=== PATIENT | male | born 1960 | race Caucasian/White ===

== ENCOUNTER 2023-02-19 09:55 | Outpatient (REF) | payer OTHER, SELFPAY ==
[2023-02-19 10:13] LABS: MANUAL DIFF FLAG NO
[2023-02-19 10:49] LABS: Basophils Percent Auto 0.6 % (0-2); Eosinophils Absolute Auto 0.1 X10*3/uL (0.0-0.4); Eosinophils Percent Auto 1.2 % (0-4); Hematocrit 44.3 % (42.0-52.0); Hemoglobin 15.2 g/dl (14.0-18.0); Imm Gran Abs Auto 0.03 X10*3/uL (0.00-0.03); Imm Gran Pct Auto 0.5 % (0.0-0.4); Lymphocytes Absolute Auto 1.4 X10*3/uL (1.2-4.9); Lymphocytes Percent Auto 21.6 % (20-40); Mean Corpuscular HGB Conc 34.3 g/dl (31.0-36.0); Mean Corpuscular Hemoglobin 31.7 pg (27.0-33.0); Mean Corpuscular Volume 92.5 fL (80.0-98.0); Mean Platelet Volume 9.5 fL (9.4-12.4); Monocytes Absolute Auto 0.6 X10*3/uL (0.1-1.2); Monocytes Percent Auto 9.6 % (2-11); Neutrophils Absolute Auto 4.4 x10*3/uL (2.0-8.3); Neutrophils Percent Auto 66.5 % (45-73); Platelet Count 178 X10*3/uL (160-400); Red Blood Count 4.79 X10*6/uL (4.60-5.80); Red Cell Distribution Width 12.3 % (11.0-16.0); White Blood Count 6.6 X10*3/uL (4.8-10.8)
[2023-02-19 11:19] LABS: Alanine Aminotransferase 34 U/L (0-40); Albumin Level 4.1 g/dL (3.5-5.0); Alkaline Phosphatase 106 U/L (39-117); Anion Gap 13 (12-20); Aspartate Amino Transferase 30 U/L (5-37); Bilirubin Total 0.7 mg/dL (0.0-1.0); Blood Urea Nitrogen 15 mg/dL (9-16); Carbon Dioxide 26 mmol/L (22-29); Chloride 106 mmol/L (96-108); Cholesterol 170 mg/dL; Estimated Glomerular Filt Rate > 60; Glucose Random 97 mg/dL (60-115); HDL Cholesterol 44 mg/dL; LDL Cholesterol Calculated 97 mg/dl; Potassium 4.4 mmol/L (3.3-5.1); Sodium 141 mmol/L (135-145); Total Protein 6.9 g/dL (6.5-8.0); Triglycerides 145 mg/dL; Uric Acid 5.9 mg/dL (3.4-7.0)
[2023-02-19 11:34] LABS: Prostate Specific Antigen 1.44 ng/mL (<0.05-4.0)
== END 2023-02-19 09:56 | disposition home or self-care (01) ==
LOC: HO.LAB 09:55
PROVIDERS: PCP Internal Medicine; Visit Provider Internal Medicine
DX: Z12.5 Encounter for screening for malignant neoplasm of prostate (principal); M19.90 Unspecified osteoarthritis, unspecified site; M10.9 Gout, unspecified; R35.1 Nocturia; Z83.42 Family history of familial hypercholesterolemia
CPT/HCPCS: 36415; 80053; 80061; 84153; 84550; 85025

== ENCOUNTER 2024-03-27 09:31 | Outpatient (REF) | payer OTHER, SELFPAY ==
[2024-03-27 10:15] LABS: MANUAL DIFF FLAG NO
[2024-03-27 10:43] LABS: Basophils Percent Auto 0.3 % (0-2); Eosinophils Absolute Auto 0.1 X10*3/uL (0.0-0.4); Eosinophils Percent Auto 1.7 % (0-4); Hematocrit 43.4 % (42.0-52.0); Hemoglobin 15.1 g/dl (14.0-18.0); Imm Gran Abs Auto 0.07 X10*3/uL (0.00-0.03); Imm Gran Pct Auto 1.1 % (0.0-0.4); Lymphocytes Absolute Auto 1.3 X10*3/uL (1.2-4.9); Lymphocytes Percent Auto 21.1 % (20-40); Mean Corpuscular HGB Conc 34.8 g/dl (31.0-36.0); Mean Corpuscular Hemoglobin 31.9 pg (27.0-33.0); Mean Corpuscular Volume 91.6 fL (80.0-98.0); Mean Platelet Volume 9.4 fL (9.4-12.4); Monocytes Absolute Auto 0.6 X10*3/uL (0.1-1.2); Monocytes Percent Auto 8.7 % (2-11); Neutrophils Absolute Auto 4.2 x10*3/uL (2.0-8.3); Neutrophils Percent Auto 67.1 % (45-73); Platelet Count 176 X10*3/uL (160-400); Red Blood Count 4.74 X10*6/uL (4.60-5.80); White Blood Count 6.3 X10*3/uL (4.8-10.8)
[2024-03-27 12:13] LABS: Alanine Aminotransferase 26 U/L (0-40); Albumin Level 4.1 g/dL (3.5-5.0); Alkaline Phosphatase 113 U/L (39-117); Anion Gap 12 (12-20); Aspartate Amino Transferase 22 U/L (5-37); Bilirubin Total 0.3 mg/dL (0.0-1.0); Blood Urea Nitrogen 14 mg/dL (9-16); Calcium 8.6 mg/dL (8.4-10.2); Carbon Dioxide 26 mmol/L (22-29); Chloride 105 mmol/L (96-108); Estimated Glomerular Filt Rate > 60; Glucose Fasting 92 mg/dL (60-99); Sodium 139 mmol/L (135-145); Total Protein 7.1 g/dL (6.5-8.0)
== END 2024-03-27 09:32 | disposition home or self-care (01) ==
LOC: HO.HMGCLDS 09:31
PROVIDERS: PCP Internal Medicine; Visit Provider Internal Medicine
DX: I10 Essential (primary) hypertension (principal); G47.33 Obstructive sleep apnea (adult) (pediatric); I45.10 Unspecified right bundle-branch block; Z12.5 Encounter for screening for malignant neoplasm of prostate
CPT/HCPCS: 36415; 80053; 84153; 85025

== ENCOUNTER 2025-03-03 09:56 | Outpatient (AMB) | payer OTHER, SELFPAY ==
[2025-03-03 09:38] VITALS: BP 130/70; PULSE 88; TEMP 36.6; O2SAT 98; BMI 41.0
--- NOTE | 2025-03-03 09:38 | A.OFFPC_ITS ---
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 Required: No Accompanied by: Self / Same As Patient Allergies No Known Allergies Allergy (Verified 03/03/25 09:39) Tobacco use date assessed: 03/03/25 Fall risk assessment: No Falls in past year Last assessed Fall Risk: 03/03/25 Dental Screening Dental Screen Date: 03/03/25 Did you have a dental visit in the last 12 months?: Yes Did you have a dental problem in the last 6 months where you did not have access to dental care?: No [facility] Medical History (Updated 03/03/25 @ 10:18 by Michel Medina MD) Obstructive sleep apnea Obesity (BMI 30.0-34.9) Chronic gout Encounter for colorectal cancer screening using Cologuard test (10/29/24) Family History Mother No problems noted. Mother No problems noted. Social History Housing: House Patient Tobacco Use Status: Never used Tobacco e-Cigarette/Vaping Use: Never Used service: No Current occupational status: employed Cognitive needs: No Hearing needs: No Vision needs: Yes (rx glasses) Questionnaire PHQ-9 Over the last 2 weeks, how often have you been bothered by any of the following problems? 1. Little interest or pleasure in doing things: not at all 2. Feeling down, depressed, or hopeless: not at all 3. Trouble falling or staying asleep, or sleeping too much: not at all 4. Feeling tired or having little energy: not at all 5. Poor appetite or overeating: not at all 6. Feeling bad about yourself - or that you are a failure or have let yourself or your family down: not at all 7. Trouble concentrating on things, such as reading the newspaper or watching television: not at all 8. Moving or speaking so slowly that other people could have noticed. Or the opposite - being so fidgety or restless that you have been moving around a lot more than usual: not at all 9. Thoughts that you would be better off or of hurting yourself in some way: not at all Total score: 0 Depression Screening Interpretation: Negative Depression Screening Done: Yes Source: Developed by Drs. Perry Peters, Joy Conde, Miguel Chiu and colleagues, with an educational cj from [employer]. Thrive Questionnaire Date Thrive assessed: 03/03/25 I am a: Patient Within the past 12 months, did the food you bought not last and you didn't have the money to get more?: Never true Within the past 12 months, did you worry whether your food would run out before you got money to buy more?: Never true Do you have trouble paying for medicines?: No Do you have trouble getting transportation to medical appointments?: No Do you have trouble paying your heating and electricity bill?: No Do you have trouble taking care of your child, family member or friend?: No Do you have trouble with day-to-day activities such as bathing, preparing meals, shopping, managing finances, etc.?: No Are you currently unemployed and looking for a job?: No Are you interested in more education?: No Currently or been in a relationship where the following occur: No concerns reported THRIVE Score: 0 AUDIT C Alcohol Use Questionnaire (AUDIT-C) 1. How often do you have a drink containing alcohol?: Monthly or less 2. How many drinks containing alcohol do you have on a typical day when you are drinking?: 1 or 2 3. How often do you have six or more drinks on one occasion?: Less than monthly Total Score: 2 BIRD-7 AMB Questionnaire BIRD-7 Date BIRD - 7 assessed: 03/03/25 Feeling nervous, anxious, or on edge: 0 = Not at all Not being able to stop or control worryin = Not at all Worrying too much about different things: 0 = Not at all Trouble relaxin = Not at all Being so restless that it is hard to sit still: 0 = Not at all Becoming easily annoyed or irritable: 0 = Not at all Feeling afraid as if something awful might happen: 0 = Not at all Total BIRD-7 score (0-4 normal; 5-9 mild; 10-14 moderate; 15-21 severe): 0 Source: Developed by Drs. Perry Peters, Joy Conde, Miguel Chiu and colleagues, with an educational cj from [employer]. Physical exam (Primary Care) BMI Assessment/Plan discussion: High Tobacco/Smoking Status: Tobacco use Status Tobacco use date assessed 03/03/25 03/03/25 09:40 Patient Tobacco Use Status Never used Tobacco 03/03/25 09:40 e-Cigarette/Vaping Use Never Used 03/03/25 09:40 PHQ-9: PHQ-9 Score PHQ-9: Total score 0 03/03/25 09:40 Depression Screening Interpretation: Negative Thrive Assessment: Date of Thrive Assessment Date Thrive assessed 03/03/25 03/03/25 09:40 Currently or been in a relationship where the following occur: No concerns reported Advance Care Planning discussion: Exists, not on file Date of discussion: 03/03/25 Who was present: Patient Forms completed: Health Care Proxy Coding Level of Care Code New Pt Level 4 (01984) Complex EM visit Add On G2211 Diagnoses Chronic gout M1A.9XX0 Obesity (BMI 30.0-34.9) E66.811 Obstructive sleep apnea G47.33 Additional Codes Vital Signs *Quality* - Advance Care Planning discussion: Exists, not on file ([id number]) Assessment & Plan Assessment & Plan (1) Chronic gout: Code(s): M1A.9XX0 - Chronic gout, unspecified, without tophus (tophi) Category: Medical Plan: Continue allopurinol (2) Obesity (BMI 30.0-34.9): Code(s): E66.811 - Obesity, class 1 Category: Medical Plan: Patient is on a 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 He reports consistently managing his hypertension, showing favorable blood pressure readings, particularly with recent progress attributed partly to weight loss achieved through a specific eating plan. His current methods center around structured food intake and avoidance of conflicting macronutrients, with an emphasis on maintaining and further decreasing body weight. His medication regimen for gout and osteoarthritis remains stable, indicating that his current usage and symptoms control achieve desired outcomes without side effects. He commits to prudent use of meloxicam based on activity needs, noting significant reduction in usage frequency. Meanwhile, allopurinol serves as a core preventative treatment. Obstructive sleep apnea symptoms have been methodically controlled with consistent CPAP use over nearly a decade, reflecting ongoing management of the condition without noted complications. In the realm of visual health, sunglasses have been an effective tool in stabilizing drusen progression under professional advisement following initial lens prescription. He chooses to forgo unnecessary physical assessments unless symptoms necessitate attention. 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 - , with implied spousal support. - Engages with a targeted eating program ( [employer] ) for weight control. - Experiences reduced nocturnal activity and driving, maintaining functional capability. Review of Systems - Cardiovascular: Reports stable blood pressure readings; denies any new symptoms. - Gastrointestinal: Reports flare-ups of hemorrhoids. - Musculoskeletal: Reports management of gout and arthritis with medications. - Sleep: Reports regular and successful use of CPAP for obstructive sleep apnea. - Vision: Reports stabilization of drusen with adherence to ophthalmologic recommendations. Physical Exam General: Cooperative and healthy appearing Nutritional Appearance: Well nourished Orientation/consciousness: Patient oriented x3 Limitations: No limitations Head: Normal to inspection General: Appearance normal, both eyes and all related structures Neck: Normal visual inspection Chest: Normal palpation of entire chest wall Respiratory: CPAP machine since October 2013 for obstructive sleep apnea ormal respiratory effort Neurology: Patient oriented x3 Results - Labs: Forthcoming fasting blood work planned. - Tests: Cologuard completed with negative results. Plan 1. Obesity - Continue with current dietary program. - Encouraged to monitor progress. 2. Hypertension - Maintain lifestyle modifications. - Ongoing monitoring of blood pressure. 3. Gout - Continue current allopurinol treatment. - Monitoring for symptom flare-ups. 4. Osteoarthritis - Use meloxicam as needed, monitoring usage. - Symptomatic management focus. 5. Obstructive Sleep Apnea - Consistent use of CPAP. - Success in managing condition noted. 6. Drusen - Follow advice on sunglass use. - Maintain regular eye checks. Discussion Notes During the consultation, the patient and I discussed the management of his chronic conditions extensively. He agreed to continue his current approach to weight loss with the [employer] program and adhere to dietary modifications. We discussed his hypertension management, with emphasis on maintaining lifestyle adjustments to support optimal blood pressure results. I reviewed the current treatment regime for gout and arthritis, confirming continued adherence to allopurinol and situational use of meloxicam. Furthermore, we reiterated the importance of CPAP therapy for obstructive sleep apnea control. For ocular management, we explored ongoing strategies to prevent progression of drusen. Anticipated follow-up blood work was planned to verify the comprehensive state of his health. Patient Instructions - Continue with your eating program and monitor food intake. - Check blood pressure regularly and continue current treatment. - Take allopurinol every day and meloxicam when necessary. - Use the CPAP machine every night for sleep apnea. - Wear sunglasses daily to protect your eyes. - Go for lab tests at your convenience. Orders: Orders Lipid Panel Today I10 - Essential (primary) hypertension Thyroid Stimulating Hormone Today I10 - Essential (primary) hypertension UA and rflx microscopic Today I10 - Essential (primary) hypertension Complete Blood Count no Diff Today I10 - Essential (primary) hypertension Basic Metabolic Panel Today I10 - Essential (primary) hypertension Liver Panel Today I10 - Essential (primary) hypertension
== END 2025-03-03 10:21 | disposition home or self-care (01) ==
LOC: HO.HMCHD 09:57
PROVIDERS: PCP Internal Medicine; Visit Provider Internal Medicine
DX: M1A.9XX0 Chronic gout, unspecified, without tophus (tophi) (principal); E66.811 Obesity, class 1; G47.33 Obstructive sleep apnea (adult) (pediatric); Z00.00 Encounter for general adult medical examination without abnormal findings

== ENCOUNTER → 2025-03-03 09:56 | Outpatient (BNVA) | payer OTHER, SELFPAY | PROVIDERS: PCP Internal Medicine; Visit Provider Internal Medicine | DX: Z13.89 Encounter for screening for other disorder (principal) ==

== ENCOUNTER 2025-03-05 08:42 | Outpatient (REF) | payer OTHER, SELFPAY ==
[2025-03-05 10:00] LABS: Appearance Urine Clear; Color Urine Yellow; Glucose Urine UA Negative (Negative); Leukocyte Esterase Urine Small (1+) (Negative); Nitrite Urine Negative (Negative); Specific Gravity - Urine 1.015 (1.005-1.025); UMIC TRIGGER UA YES; Urine Blood Negative (Negative); Urine Ketones Negative (Negative); Urine Protein Negative (Neg-Trace)
[2025-03-05 10:12] LABS: Bacteria Urine None Seen (None Seen); Hyaline Casts Urine 0-2 /LPF (0-2); RBC Urine 0-2 /HPF (0-2); Squamous Epithelial Cell Urine 0-2 /HPF (0-2); WBC Urine 0-5 /HPF (0-5)
[2025-03-05 10:29] LABS: Hemoglobin 14.6 g/dl (14.0-18.0); Mean Corpuscular HGB Conc 34.8 g/dl (31.0-36.0); Mean Corpuscular Hemoglobin 31.5 pg (27.0-33.0); Mean Corpuscular Volume 90.5 fL (80.0-98.0); Mean Platelet Volume 9.9 fL (9.4-12.4); Platelet Count 191 X10*3/uL (160-400); Red Blood Count 4.64 X10*6/uL (4.60-5.80); Red Cell Distribution Width 12.2 % (11.0-16.0)
[2025-03-05 11:22] LABS: Alanine Aminotransferase 31 U/L (0-40); Alkaline Phosphatase 105 U/L (39-117); Anion Gap 10 (12-20); Aspartate Amino Transferase 29 U/L (5-37); Bilirubin Direct 0.2 mg/dL (0.0-0.5); Bilirubin Total 0.5 mg/dL (0.0-1.0); Blood Urea Nitrogen 15 mg/dL (9-16); Carbon Dioxide 26 mmol/L (22-29); Chloride 107 mmol/L (96-108); Cholesterol 170 mg/dL (<200); Estimated Glomerular Filt Rate > 60; Glucose Random 102 mg/dL (60-115); HDL Cholesterol 47 mg/dL (>40); LDL Cholesterol Calculated 99 mg/dL (<100); Potassium 4.3 mmol/L (3.3-5.1); Sodium 139 mmol/L (135-145); Thyroid Stimulating Hormone 1.32 uIU/mL (0.32-4.0); Triglycerides 120 mg/dL (<150)
== END 2025-03-05 08:43 | disposition home or self-care (01) ==
LOC: HO.HMGCLDS 08:42
PROVIDERS: PCP Internal Medicine; Visit Provider Internal Medicine
DX: I10 Essential (primary) hypertension (principal)
CPT/HCPCS: 36415; 80048; 80061; 80076; 81001; 81003; 84443; 85027

== ENCOUNTER 2025-09-08 08:52 | Outpatient (AMB) | payer OTHER, SELFPAY ==
[2025-09-08 07:45] VITALS: BP 122/74; PULSE 89; TEMP 36.5; O2SAT 98; BMI 43.0
--- NOTE | 2025-09-08 07:45 | MHC.PC.OV ---
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 Required: No Accompanied by: Self / Same As Patient Allergies No Known Allergies Allergy (Verified 09/08/25 07:45) Medication List - Last Reconciled 09/20/25 by CHEMA Leiva allopurinol 300 mg PO DAILY meloxicam 15 mg PO DAILY Tobacco use date assessed: 09/08/25 Fall risk assessment: No Falls in past year Last assessed Fall Risk: 09/08/25 Dental Screening Dental Screen Date: 09/08/25 Did you have a dental visit in the last 12 months?: Yes Did you have a dental problem in the last 6 months where you did not have access to dental care?: No HPI HPI Comments History of Present Illness Details History of Present Illness The patient is a 64-year-old male with Gout, [place] on CPAP, HTN, Osteoarthritis, Obesity and Drusen presenting to establish care with a new physician and for management of his chronic conditions. The patient has advanced osteoarthritis in his thumb, for which he takes meloxicam as needed for activities such as golfing, baseball, or writing. He last saw a hand surgeon and had x-rays of the hand approximately 8 years ago. He has a history of traumatic thumb amputation in 1982, which was reattached via a flap graft and required a 54-day hospitalization due to infection. The patient has a history of gout, managed with allopurinol 300 mg. He reports that organ meat is a dietary trigger, while wine and shellfish are not. The patient has obstructive sleep apnea and has been using a CPAP machine every night since October 2013. He does not recall his last visit with a pulmonary doctor and purchased his current machine outright. Additional history includes a right bundle branch block and a history of monitored hypertension, with a good blood pressure reading today. He follows a [employer] diet, which involves food groups to manage his weight. Recent blood work from February was normal. He has also experienced issues with his ears getting blocked with excess wax and affecting his hearing. Medical History: - Advanced osteoarthritis of the thumb - Gout - Obstructive sleep apnea, on CPAP since 2013 - Right bundle branch block - Hypertension, reportedly well-controlled - History of cerumen impaction - History of ear infection Surgical History: - Thumb reattachment with flap graft in 1982 following traumatic injury Medications: - Allopurinol 300 mg for gout - Meloxicam as needed for thumb osteoarthritis Health Maintenance The patient is establishing care. His recent bloodwork was normal and his blood pressure is well-controlled. A follow-up appointment for a complete physical exam will be scheduled in 6 months. Cologuard is due in 2027. Social History - Diet: Follows a [employer] diet, which involves not mixing proteins with carbohydrates in a single meal. - Exercise/Activities: Engages in golfing and baseball. - Occupation: Member of the [employer]. Results - Labs: Blood work from February was reviewed and noted to be normal. Patient was informed and verbally consented to the use of an ambient scribe for clinic note documentation during this visit. [facility] Medical History (Updated 09/08/25 @ 09:28 by CHEMA Leiva) Chronic gout Encounter for colorectal cancer screening using Cologuard test (10/29/24) Obesity (BMI 30.0-34.9) Obstructive sleep apnea Osteoarthritis of left thumb Family History (Updated 09/08/25 @ 09:04 by Iveth Otto MA) Mother No problems noted. Mother No problems noted. Social History Housing: House Patient Tobacco Use Status: Never used Tobacco e-Cigarette/Vaping Use: Never Used service: No Current occupational status: employed Cognitive needs: No Hearing needs: No Vision needs: Yes (rx glasses) Questionnaire PHQ-9 Over the last 2 weeks, how often have you been bothered by any of the following problems? 1. Little interest or pleasure in doing things: not at all 2. Feeling down, depressed, or hopeless: not at all 3. Trouble falling or staying asleep, or sleeping too much: not at all 4. Feeling tired or having little energy: not at all 5. Poor appetite or overeating: not at all 6. Feeling bad about yourself - or that you are a failure or have let yourself or your family down: not at all 7. Trouble concentrating on things, such as reading the newspaper or watching television: not at all 8. Moving or speaking so slowly that other people could have noticed. Or the opposite - being so fidgety or restless that you have been moving around a lot more than usual: not at all 9. Thoughts that you would be better off or of hurting yourself in some way: not at all Total score: 0 Depression Screening Interpretation: Negative Depression Screening Done: Yes Source: Developed by Drs. Perry Peters, Joy Conde, Miguel Chiu and colleagues, with an educational cj from [employer]. Thrive Questionnaire Date Thrive assessed: 09/08/25 I am a: Patient Within the past 12 months, did the food you bought not last and you didn't have the money to get more?: Never true Within the past 12 months, did you worry whether your food would run out before you got money to buy more?: Never true Do you have trouble paying for medicines?: No Do you have trouble getting transportation to medical appointments?: No Do you have trouble paying your heating and electricity bill?: No Do you have trouble taking care of your child, family member or friend?: No Do you have trouble with day-to-day activities such as bathing, preparing meals, shopping, managing finances, etc.?: No Are you currently unemployed and looking for a job?: No Are you interested in more education?: No THRIVE Score: 0 AUDIT C Alcohol Use Questionnaire (AUDIT-C) 1. How often do you have a drink containing alcohol?: Monthly or less 2. How many drinks containing alcohol do you have on a typical day when you are drinking?: 1 or 2 3. How often do you have six or more drinks on one occasion?: Less than monthly Total Score: 2 BIRD-7 AMB Questionnaire BIRD-7 Date BIRD - 7 assessed: 09/08/25 Feeling nervous, anxious, or on edge: 0 = Not at all Not being able to stop or control worryin = Not at all Worrying too much about different things: 0 = Not at all Trouble relaxin = Not at all Being so restless that it is hard to sit still: 0 = Not at all Becoming easily annoyed or irritable: 0 = Not at all Feeling afraid as if something awful might happen: 0 = Not at all Total BIRD-7 score (0-4 normal; 5-9 mild; 10-14 moderate; 15-21 severe): 0 Source: Developed by Drs. Perry Peters, Joy Conde, Miguel Chiu and colleagues, with an educational cj from [employer]. Review of Systems Narrative Review of Systems - HEENT: Reports hearing blockage from excessive ear wax, which is worse in one ear. Denies vision problems. - Cardiovascular: Denies chest pain. Acknowledges a right bundle branch block affects his pulse. - Respiratory: Denies shortness of breath. - Musculoskeletal: Reports intermittent thumb pain from advanced osteoarthritis. Physical exam (Primary Care) Vital Signs: Last Vital Signs Temp 97.7 F 09/08/25 07:45 Pulse 89 09/08/25 07:45 BP 122/74 09/08/25 07:45 Pulse Ox 98 09/08/25 07:45 Oxygen Delivery Method Room Air 09/08/25 07:45 BMI result Body Mass Index 43.0 GENERAL Well developed, obese, in no apparent distress HEENT Head-Normocephalic Eyes- PERRLA, EOMI, Conjuctiva clear, lids WNL Ears- Canals clear, TMs WNL Mouth/Throat-No lesions, no erythema, no exudate Neck- Supple, No lymphadenopathy, thyroid WNL RESPIRATORY Normal I:E, Clear to auscultation CARDIOVASCULAR Regular, rate and rhythm, No murmurs or rubs GASTROINTESTINAL Soft, nontender, normal bowel sounds, no masses MUSCULOSKELETAL Back- nontender Joints- no swelling NEUROLOGICAL Gait normal PSYCHIATRIC Oriented to person, place and time Mood and affect WNL Appearance WNL Speech WNL Thought processes WNL Tobacco/Smoking Status: Tobacco use Status Tobacco use date assessed 09/08/25 09/08/25 07:46 Patient Tobacco Use Status Never used Tobacco 09/08/25 07:46 e-Cigarette/Vaping Use Never Used 09/08/25 07:46 PHQ-9: PHQ-9 Score PHQ-9: Total score 0 09/13/25 17:31 Depression Screening Interpretation: Negative Thrive Assessment: Date of Thrive Assessment Date Thrive assessed 09/08/25 09/08/25 07:46 Coding Level of Care Code Established Pt Est Pt Level 4 (35048) Patient Type Established Diagnoses Chronic gout M1A.9XX0 Osteoarthritis of left thumb M18.12 Obstructive sleep apnea G47.33 Obesity (BMI 30.0-34.9) E66.811 Time Spent (min) 35 Comment Time spent on chart review, medication reconciliation, H&P, Patient education and orders Assessment & Plan Assessment & Plan (1) Chronic gout: Code(s): M1A.9XX0 - Chronic gout, unspecified, without tophus (tophi) Category: Medical (2) Osteoarthritis of left thumb: Code(s): M18.12 - Unilateral primary osteoarthritis of first carpometacarpal joint, left hand Category: Medical (3) Obstructive sleep apnea: Code(s): G47.33 - Obstructive sleep apnea (adult) (pediatric) Category: Medical (4) Obesity (BMI 30.0-34.9): Code(s): E66.811 - Obesity, class 1 Category: Medical Plan Plan Patient was informed and verbally consented to the use of an ambient scribe for clinic note documentation during this visit. 1. Advanced Osteoarthritis Of The Thumb The patient manages his thumb osteoarthritis with as-needed meloxicam. Given that his last surgical evaluation and imaging were 8 years ago, a referral will be placed to a hand specialist for updated assessment. 2. Obstructive Sleep Apnea The patient is compliant with nightly CPAP therapy. He has not seen a specialist in some time and is concerned about obtaining a new machine when his current one fails. A referral will be placed to a laboratory technical specialist for follow-up and to manage his long-term CPAP needs. 3. Gout The patient's gout is well-managed on allopurinol 300 mg and he is aware of his dietary triggers. He will continue his current medication and can request refills via the pharmacy. 4. Cerumen Impaction While the patient reports recent issues with ear wax blockage, his ears are clear on today's examination. Recommended he continue to use a few drops of hydrogen peroxide in his ears weekly to keep wax soft and prevent future impaction. Discussion Notes I discussed my assessment and plan with the patient, who is here to establish care. We will proceed with referrals to a hand specialist for his thumb osteoarthritis and to a laboratory technical specialist for ongoing management of his obstructive sleep apnea and CPAP therapy. I informed him that his current medications for gout will be continued and refills can be requested through his pharmacy. Regarding his concern about ear wax, I noted that his ears were clear today but advised him to use hydrogen peroxide drops weekly as a preventative measure. We agreed on a follow-up appointment in six months for a full physical exam. Patient Instructions - We will send referrals to a hand specialist for your thumb arthritis and a lung specialist (student life advisor) for your sleep apnea. - Continue taking your allopurinol for gout as prescribed. When you need a refill, please request it from your pharmacy. - To prevent ear wax buildup, you can place a few drops of hydrogen peroxide in your ear about once a week. - Please go to the front maker lockstitch to schedule a follow-up appointment for a full physical exam in 6 months. Orders: Orders XR hand LT 2V 09/08/25 M18.12 - Unilateral primary osteoarthritis of first carpometacarpal joint, left hand Referrals Hand Surgery Referral M18.12 - Unilateral primary osteoarthritis of first carpometacarpal joint, left hand Sleep Medicine Referral G47.33 - Obstructive sleep apnea (adult) (pediatric)
== END 2025-09-08 09:28 | disposition home or self-care (01) ==
LOC: HO.HMCHD 08:52
PROVIDERS: PCP Internal Medicine; Visit Provider Physician Assistant Medical
DX: M1A.9XX0 Chronic gout, unspecified, without tophus (tophi) (principal); M18.12 Unilateral primary osteoarthritis of first carpometacarpal joint, left hand; G47.33 Obstructive sleep apnea (adult) (pediatric); E66.811 Obesity, class 1